=== PATIENT | male | born 1960 | race Caucasian/White ===

== ENCOUNTER 2021-10-24 10:41 | Day surgery (SDC) | payer BC ==
[2021-10-24] MEDS: Lactated Ringers 1,000 ML IV SCH (11:06)
[2021-10-24] MEDS ORDERED: Midazolam 1 MG/ML 2 ML SDV ONE (12:15)
[2021-10-24] MEDS ORDERED: Propofol 200 MG/20 ML SDV ONE (12:15)
== END 2021-10-24 15:45 | disposition home or self-care (01) ==
LOC: KA.SDS 10:41
PROVIDERS: ATTEND Surgery
DX: Z12.11 Encounter for screening for malignant neoplasm of colon (principal); D12.0 Benign neoplasm of cecum; D12.3 Benign neoplasm of transverse colon; K57.30 Diverticulosis of large intestine without perforation or abscess without bleeding; F41.9 Anxiety disorder, unspecified; K21.9 Gastro-esophageal reflux disease without esophagitis; E78.5 Hyperlipidemia, unspecified; I10 Essential (primary) hypertension; E55.9 Vitamin D deficiency, unspecified; Z88.0 Allergy status to penicillin; Z88.2 Allergy status to sulfonamides; Z79.899 Other long term (current) drug therapy; Z79.82 Long term (current) use of aspirin; Z83.71 Family history of colonic polyps
CPT/HCPCS: 00812; J2250; J2704; J7120